=== PATIENT | female | born 1945 | race Caucasian/White ===

== ENCOUNTER 2021-07-28 08:31 | Outpatient (CLI) | payer MEDICARE ==
[2021-07-28 09:25] LABS: BASOPHILS % (AUTO) 1 % (0-1); EOSINOPHILS % (AUTO) 5 % (1-7); LYMPHOCYTES % (AUTO) 13 % (22-44); MEAN CORPUSCULAR HEMOGLOBIN 31.6 pg (27.0-34.8); MEAN CORPUSCULAR HGB CONC 34.1 g/dL (32.4-35.8); MONOCYTES % (AUTO) 8 % (2-9); NEUTROPHILS % (AUTO) 73 % (42-75); PLATELET COUNT 224 x10^3/uL (130-400); RED BLOOD COUNT 4.66 x10^6/uL (3.82-5.3); RED CELL DISTRIBUTION WIDTH 15.7 % (9.6-15.2)
[2021-07-28] MEDS ORDERED: THIA250T7 PO (09:27)
[2021-07-28] MEDS ORDERED: LITH300T3 PO (09:27)
[2021-07-28] MEDS ORDERED: NEXIUM PO (09:27)
[2021-07-28] MEDS ORDERED: RAMI10CA59 PO (09:27)
[2021-07-28] MEDS ORDERED: ALEN70TA77 PO (09:27)
[2021-07-28] MEDS ORDERED: COLE1TAB2 PO (09:27)
[2021-07-28] MEDS ORDERED: FISH OIL PO (09:27)
[2021-07-28] MEDS ORDERED: FOLIC ACID PO (09:27)
[2021-07-28] MEDS ORDERED: MULT-717 PO (09:27)
[2021-07-28] MEDS ORDERED: PROP20TA PO (09:27)
[2021-07-28] MEDS ORDERED: [UNRECOGNIZED DRUG - OTHER] PO (09:27)
[2021-07-28] MEDS ORDERED: ASPI81TA45 PO (09:27)
[2021-07-28] MEDS ORDERED: SIMV20TA19 PO (09:27)
[2021-07-28] MEDS ORDERED: ATEN25TA PO (09:27)
[2021-07-28 09:39] LABS: ALANINE AMINOTRANSFERASE 46 U/L (12-78); ANION GAP 7 mmol/L (5-15); CALCIUM 9.1 mg/dL (8.5-10.1); CHLORIDE 110 mmol/L (98-107); CREATININE 0.68 mg/dL (0.55-1.02)
[2021-07-28 09:40] LABS: INTERNATIONAL NORMALIZED RATIO 1.02 (0.93-1.1); PROTHROMBIN TIME 10.9 Seconds (9.6-11.5)
[2021-07-28 09:42] LABS: ALKALINE PHOSPHATASE 76 U/L (45-117); BILIRUBIN,TOTAL 1.4 mg/dL (0.2-1.0); TOTAL PROTEIN 7.2 g/dL (6.4-8.2)
== END 2021-07-28 23:59 | disposition home or self-care (01) ==
LOC: STAR 08:31
PROVIDERS: ATTEND Neurological Surgery
DX: Z01.818 Encounter for other preprocedural examination (principal); M47.12 Other spondylosis with myelopathy, cervical region; M95.4 Acquired deformity of chest and rib; M47.814 Spondylosis without myelopathy or radiculopathy, thoracic region; I44.5 Left posterior fascicular block; R94.31 Abnormal electrocardiogram [ECG] [EKG]; I49.49 Other premature depolarization
CPT/HCPCS: 36415; 71046; 80053; 85025; 85610; 85730; 93005

== ENCOUNTER → 2021-08-05 | Outpatient (CLI) | payer MEDICARE ==
[~2021-08-05] MED LIST: ALEN70TA77 PO; ASPI81TA45 PO; ATEN25TA PO; COLE1TAB2 PO; FISH OIL PO; FOLIC ACID PO; LITH300T3 PO; MULT-717 PO; NEXIUM PO; PROP20TA PO; RAMI10CA59 PO; SIMV20TA19 PO; THIA250T7 PO; [UNRECOGNIZED DRUG - OTHER] PO
== END | disposition home or self-care (01) ==
LOC: STAR 10:53
PROVIDERS: ATTEND Neurological Surgery
DX: Z01.812 Encounter for preprocedural laboratory examination (principal); Z20.822 Contact with and (suspected) exposure to COVID-19
CPT/HCPCS: 36415; 87635

== ENCOUNTER 2021-08-11 05:42 | Inpatient (IN) | payer MEDICARE ==
[~2021-08-11] VITALS: Ht 152.4 cm; Wt 58.4 kg
[2021-08-12 12:24] VITALS: BP 156/80
== END 2021-08-12 17:46 | disposition home or self-care (01) | DRG 305 ==
LOC: INTOOBSV 05:42 → ORIP 05:42 → 4WST 13:24 → OBSVTOIN 13:48
PROVIDERS: ADMIT Neurological Surgery; ATTEND Neurological Surgery
DX: I16.0 Hypertensive urgency (principal); M50.10 Cervical disc disorder with radiculopathy, unspecified cervical region; I10 Essential (primary) hypertension; E78.5 Hyperlipidemia, unspecified; M81.0 Age-related osteoporosis without current pathological fracture; K21.9 Gastro-esophageal reflux disease without esophagitis; Z82.49 Family history of ischemic heart disease and other diseases of the circulatory system